=== PATIENT | male | born 1990 | race Two or more races ===

== ENCOUNTER 2023-03-31 10:32 | Outpatient (CLI) | payer OTHER | END 2023-03-31 10:45 | disposition home or self-care (01) | LOC: SONOGRAMA 10:32 | PROVIDERS: ATTEND Specialist | DX: D17.0 Benign lipomatous neoplasm of skin and subcutaneous tissue of head, face and neck (principal) ==

== ENCOUNTER 2023-06-02 05:30 | Day surgery (SDC) | payer OTHER ==
[2023-05-25 11:53] LABS: URINE APPEARANCE Clear; URINE BILIRRUBIN Negative (NEGATIVE); URINE BLOOD Negative; URINE COLOR Yellow; URINE GLUCOSE Negative (NEGATIVE); URINE LEUKOCYTE Negative; URINE NITRATE Negative; URINE PROTEIN Negative (NEGATIVE); URINE UROBILINOGEN 0.2 E.U./dl
[2023-05-25 11:54] LABS: HEMATOCRIT 40.7 % (39.0-48.0); HEMOGLOBIN 13.9 g/dL (13-16.00); MEAN CELL VOLUME 82.3 fL (80.0-100.00); MEAN CORPUSCULAR HEMOGLOBIN 28.1 pg (27.00-32.0); MEAN CORPUSCULAR HGB CONC 34.2 g/dl (32.0-36.0); PLATELET COUNT 273 K/uL (150-450); RED BLOOD COUNT 4.94 M/uL (4.00-6.00); RED CELL DISTRIBUTION WIDTH 13.4 % (11.5-14.5); URINE BACTERIA 8.8 uL (0.0-1933)
[2023-05-25 12:18] LABS: URINE EPITHELIAL CELLS 0.3 uL (0.0-38.8)
[2023-05-25 12:25] LABS: ALBUMIN 4.4 gm/dL (3.4-5.0); BILIRUBIN TOTAL 1.12 mg/dL (0.3-1.2); CREATININE SERUM 0.89 mg/dL (0.70-1.30); GFR 97.27; GLOBULINA 3.3 G/DL (2.4-3.5); POTASSIUM 4.42 mEq/L (3.5-5.1); TOTAL PROTEIN 7.7 gm/dL (6.4-8.2)
[2023-05-25 12:32] LABS: INR 1.09; PARTIAL THROMBOPLASTIN TIME 31.3 SECONDS (22.0-34.0); PROTHROMBIN TIME 11.4 SECONDS (9.0-11.5)
[~2023-06-02] VITALS: Ht 188 cm; Wt 93.0 kg
[~2023-06-02 05:30] MED LIST: DUPIXENT P200 MG/1.1
[2023-06-02] MEDS ORDERED: CEFAZOLIN SODIUM 1,000 MG VIAL ONE ×2 (09:16→11:42)
[2023-06-02] MEDS ORDERED: LIDOCAINE HCL/EPINEPHRINE 20 ML VIAL IJ ONE ×2 (09:48→10:45)
[2023-06-02] MEDS ORDERED: LIDOCAINE HCL 1% 200MG/20ML VIAL IJ ONE (09:48)
[2023-06-02] MEDS ORDERED: CEFAZOLIN SODIUM 1,000 MG VIAL IV ONE (10:30)
[2023-06-02] MEDS ORDERED: LIDOCAINE HCL 100 MG/10ML VIAL IJ ONE (10:45)
[2023-06-02] MEDS ORDERED: FAMOTIDINE/PF 20 MG/2 ML VIAL ONE (11:42)
[2023-06-02] MEDS ORDERED: CEFAZOLIN SODIUM 1,000 MG VIAL IV SCH (12:00)
[2023-06-02] MEDS ORDERED: FAMOTIDINE/PF 20 MG/10 ML SYRINGE IV SCH (12:00)
== END 2023-06-02 13:40 | disposition home or self-care (01) ==
LOC: CIR.AMB 05:30
PROVIDERS: ATTEND Specialist
DX: D17.0 Benign lipomatous neoplasm of skin and subcutaneous tissue of head, face and neck (principal); Z20.822 Contact with and (suspected) exposure to COVID-19